=== PATIENT | female | born 1995 | race Hispanic/Latino ===

== ENCOUNTER 2017-02-11 17:44 | Day surgery (SDC) | payer OTHER ==
[2017-02-11 18:18] VITALS: BMI 26.3
[2017-02-11 20:33] LABS: Bilirubin Negative (Negative); Blood, Urine Trace (Negative); Glucose, Urine (Dipstick) Negative (Negative); Ketone, Urine Negative (Negative); Nitrite Negative (Negative); Protein, Urine (Dipstick) Negative (Neg-Trace); Urobilinogen 0.2 mg/dL (0.2-1.0)
[2017-02-11 20:35] LABS: Bacteria/HPF None Seen HPF (None Seen); Hyaline Casts/LPF 0-3 HYALINE CAST LPF (0-3 Hyaline); Squamous Epithelial 0-3 HPF (0-3); WBC/HPF 0-3 HPF (0-3)
--- NOTE | 2017-02-12 02:14 | PDOC.LDHP ---
Labor and Delivery H&P HPI: 21 yo at 27.6 weeks gestation by 1TUS presents with vaginal spotting since Saturday. Pt states that she noticed some spotting after using the bathroom on Saturday. She also stated that on Saturday after taking a shower, she noticed more spotting. Denied clots. Denies contractions. Denies fluid loss or abnormal vaginal discharge. No hx of sexual intercourse over the past week. Endorses suprapubic pain. PMHx: denies PSHx: denies OBhx: first , no current problems, ultrasound wnl per patient. Allergie: nkda social: denies alcohol, drug use, smoking Dating criteria: first trimester ultrasound Grav: 1 Para: 0 OB History Details: see above Current complications: none Abnormal US findings: No Past Medical History: none Current medications: pre-seferino vitamins Previous surgical history: none Social history: none - Physical Exam Vital signs reviewed and normal: yes General: NAD Heart: RRR Lungs: CTAB Abdomen: gravid (suprapubic tenderness) Extremeties: no edema FHT: category 2, variable decelerations, variability present - Assessment 21 yo @ 27.6 weeks presents with vaginal bleeding with concern for infection etiology, without evidence of vaginal or cervical bleeding on speculum exam. - Plan Plan: other (UA and culture, VP3, speculum exam -->pt was positive for bacterial vaginosis on VP3; sent in prescription for flagyl 500mg BID for 7 days.) <Emi Quinn - Last Filed: 02/12/17 02:06> <Morales Gant - Last Filed: 02/12/17 19:06> Allergies/Adverse Reactions: Allergies Allergy/AdvReac Type Severity Reaction Status Date / Time No Known Allergies Allergy Unverified 02/11/17 18:11 Attending Addendum - Attending Addendum I personally evaluated the patient and discussed the management with Dr. Irving Khan. I agree with the History, Examination, Assessment and Plan documented above with any addition or exceptions noted below. <Morales Gant - Last Filed: 02/12/17 19:06>
== END 2017-02-11 21:50 | disposition home or self-care (01) ==
LOC: L&D/OP 17:44
PROVIDERS: ATTEND Family Medicine
DX: O26.852 Spotting complicating pregnancy, second trimester (principal); O23.592 Infection of other part of genital tract in pregnancy, second trimester; N76.0 Acute vaginitis; Z3A.27 27 weeks gestation of pregnancy; Z79.899 Other long term (current) drug therapy
CPT/HCPCS: 76815; 81001; 87086; 87480; 87510; 87660; A4353

== ENCOUNTER 2017-05-07 09:45 | Inpatient (IN) | payer OTHER ==
[2017-05-07 10:15] VITALS: BMI 28.5
[2017-05-07] MEDS ORDERED: HYDROcodone/Acetaminophen 5/325 mg Tablet PO PRN ×2 (11:01)
[2017-05-07] MEDS ORDERED: Lidocaine 1% (PF) 30 ML VIAL SC PRN (11:01)
[2017-05-07] MEDS ORDERED: Carboprost 250 MCG/ML AMP IM PRN (11:01)
[2017-05-07] MEDS ORDERED: Misoprostol 200 MCG TAB PR PRN (11:01)
[2017-05-07] MEDS ORDERED: Methylergonovine 0.2 MG/ML VIAL IM PRN (11:01)
[2017-05-07] MEDS ORDERED: Docusate 100 MG CAP PO PRN (11:01)
[2017-05-07] MEDS ORDERED: Promethazine HCl 25 MG/ML VIAL IM PRN (11:01)
[2017-05-07] MEDS ORDERED: Ondansetron HCl/PF 4 MG/2 ML Vial IVP PRN (11:01)
[2017-05-07] MEDS ORDERED: Ibuprofen 800 MG TAB PO PRN (11:01)
--- NOTE | 2017-05-07 11:10 | PDOC.LDHP ---
Labor and Delivery H&P Chief complaint: contractions HPI: Patient is a 21yo at 40w0d by LMP/13w u/s presents with ctx, onset this morning, 3min apart and painful. Reports mild amount of vaginal bleeding, good movement, and no LOF. Patient declines any pain management for labor. Current gestational age (weeks): 40 Due date: 05/07/17 Dating criteria: last menstrual period, first trimester ultrasound Grav: 1 Para: 0 OB History Details: Hx of anemia of pregancy: Hgb on 01/22/17 of 9.7 Current complications: other (anemia of ) Past Medical History: None Current medications: pre- vitamins Previous surgical history: none Social history: none - Physical Exam Vital signs reviewed and normal: yes General: breathing through contractions Heart: RRR Lungs: CTAB Abdomen: NTTP Extremeties: trace edema FHT: category 1 [place] contractions every: baseline 125, +accels, moderate variability, -decels - Vaginal Exam cm dilated: 4 Effacement: 75% Station: -1 - OB Labs Blood type: O RH: positive Antibody Screen: negative HIV: negative RPR: negative HEPSAg: negative 1 hour GCT: positive (141, A1c- 5.3) GBS: negative Urine drug screen: not done Rubella: immune - Assessment L&D Assessment: term patient in labor 21yo at 40w1d by LMP/13w u/s presents with ctx 2-3min apart and SVE of 4/80%/-1 in latent labor. 1. Labor Management - Admit to L&D, labs ordered - baby is vertex confirmed by spot u/s with left posterior fundal placenta and OA position - Membranes intact, per nurse, bulging bag. Will allow patient to proceed with natural labor course and if at any point stops making change for >4 hours will consider AROM. At this time not indicated - FHT good with cat 1 strip 2. Hx of Anemia of - Hgb in 01/2017 of 9.7, repeat CBC today - patient has not been on Fe 3. Maternal FHx of MR - patient declined screening 4. Possible TB Exposure - clinic notes express quantGold to be done with 2T labs, but not apparent in our records - will call clinic to obtain record of labs possibly - Plan Plan: admit to L&D <Patrica Davalos - Last Filed: 05/07/17 11:08> <Aishwarya Coombs - Last Filed: 05/07/17 14:03> Allergies/Adverse Reactions: Allergies Allergy/AdvReac Type Severity Reaction Status Date / Time No Known Allergies Allergy Unverified 02/11/17 18:11 Attending Addendum - Attending Addendum Date/Time: 05/07/17 11:45 I personally evaluated the patient and discussed the management with Dr. Davalos. I agree with the History, Examination, Assessment and Plan documented above. <Aishwarya Coombs - Last Filed: 05/07/17 14:03>
[2017-05-07] MEDS ORDERED: FLU VACC QS2017-18 36 mo. & older 0.5 ML SYRINGE IM ONE (12:00)
[2017-05-07 13:19] LABS: Mean Corpuscular Hemoglobin 24.3 pg (25.0-35.0); Mean Corpuscular Volume 75.8 fl (77.0-87.0); Mean Platelet Volume 9.1 fL (7.4-10.4); Platelet Count 252 thou/uL (130-400); RBC Distribution Width 16.4 % (11.5-14.5); Red Blood Cell (RBC) Count 4.11 mill/uL (4.00-5.20); White Blood Cell (WBC) Count 15.7 thou/uL (4.8-10.8)
[2017-05-07] MEDS: Lactated Ringer's 1,000 ML IV SCH (13:50)
[2017-05-07 13:59] LABS: HBSAg Index 0.19 S/CO (0-0.99); Hep B Surf Ag Non-Reactive S/CO (NonReactive)
[2017-05-07 14:01] LABS: Syphilis Antibody Nonreactive (Nonreactive); Syphilis Antibody Index 0.03 S/CO (<1.00 Non-Reactive)
[2017-05-07] MEDS: LR / Pitocin 40 units/1000 ml 1,000 ML IV PRN ×2 (15:45→17:36)
[2017-05-07 16:00] LABS: Actual Bicarbonate (HCO3a) 21.2 mEq/L (22-26); Analyzer IN Cardio OR; Base Excess (BEa) -8.8 mEq/L (0 (+/-) 2.5)
--- NOTE | 2017-05-07 16:25 | PDOC.OPDEL ---
OB Operative/Delivery Note Delivery Dr/Surgeon: Franco Robert MD; Attending: Aishwarya Coombs MD Pre-Delivery Diagnosis: active labor, other (mild anemia of ) Procedure/Post Delivery Dx: spontaneous vaginal delivery Anesthesia: other (local given after delivery for repair) - Additional Findings/Plan Placenta delivered: spontaneous (via James mechanism) Repaired Obstetrical Laceration: 1st degree Estimated blood loss: 300 mL Compilations/Other Findings: Delivery Note: This is 21 yo F @ 40wks who delivered a viable F infant at 1539 on 05/07/17. Following an antepartum course notable for several episodes of bradycardia into the 70's-80's after maternal pushing, prompting brief consideration of converting to a vacuum delivery, a grossly normal female was delivered spontaneously over an intact perineum in the straight occipitoanterior position. Anterior Shoulder and then remainder of the body delivered. No nuchal cord. The head was held down and mouth and nares were quickly bulb suctioned. Cord clamped, cut, and both cord segment and cord blood were collected. Placenta was delivered intact with a 3 vessel cord noted. Fundal massage was performed and the fundus was firm. The cervix and vagina were inspected and found to have a first degree perineal laceration, repaired with 2-0 vicryl in the usual fashion with good approximation and hemostasis after a local anesthetic was injected at site. went to nursery in good condition for routine care. Apgars were 6/9 at 1 & 5 minutes, respectively. Patient tolerated delivery well. Post delivery plan: routine recovery <Franco Robert - Last Filed: 05/07/17 16:22> Attending Addendum - Attending Addendum Date/Time: 05/07/17 1407 I was present for the entire delivery with Dr. Robert. <Aishwarya Coombs - Last Filed: 05/07/17 17:37>
[2017-05-07] MEDS ORDERED: Bisacodyl 10 MG SUPP PR PRN (20:21)
[2017-05-07] MEDS ORDERED: Lanolin Ointment 7 GM TUBE TOP PRN (20:21)
[2017-05-07] MEDS: Ferrous Sulfate 325 MG TAB PO SCH (20:49)
[2017-05-07] MEDS: Docusate Calcium (SURFAK) 240 MG CAP PO SCH (21:40)
[2017-05-08] MEDS: Ibuprofen 800 MG TAB PO SCH ×4 (00:05→20:52)
[2017-05-08] MEDS: Lactated Ringer's 1,000 ML IV SCH (05:59)
--- NOTE | 2017-05-08 06:40 | PDOC.PP ---
Post Progress Note Post Day #: 1 Subjective: Patient is sitting up nursing baby this morning. She reports some low back pain , but otherwise feels well. She is with some difficulty. PO intake tolerated: yes Flatus: yes Ambulation: yes Vital Signs (12 hours) Temp Pulse Resp BP 05/08/17 04:42 98.4 F 83 16 05/08/17 04:00 98.4 F 83 16 102/61 05/08/17 00:00 98.7 F 83 16 111/62 05/07/17 20:30 98.0 F 83 16 114/56 L Weight Weight 82.554 kg - Physical Examination General: NAD Cardiovascular: no m/r/g, RRR Respiratory: clear to auscultation bilaterally Abdominal: + bowel sounds, lochia, no distention Fundus firm & at: 2-3cm below umbilicus Extremities: negative homans (B) Neurological: no gross focal deficits Psychiatric: A&Ox3, normal affect Result Diagrams: 05/08/17 06:32 Additional Labs: Post Labs Blood Type O POSITIVE 05/07/17 13:03 Hep Bs Antigen Non-Reactive S/CO (NonReactive) 05/07/17 13:03 (1) Status: Acute Comment: 21 yo delivered at 40.0 weeks a TAGA F at 1539 on 05/07/2017 via with no complications. PP day #1. Patient doing well. Encourage ambulation- low back pain likely exacerbated with staying in bed. Consult operations specialist to help with . Likely d/c home tomorrow. (2) Anemia affecting Code(s): O99.019 - ANEMIA COMPLICATING , UNSPECIFIED TRIMESTER Status : Acute Comment: Initial Hg 10.0, today 8.3- appropriate drop, delivery with EBL 300. Continue Fe supplement and evaluate for sx.
[2017-05-08 07:20] LABS: Hemoglobin 8.4 g/dL (12.0-16.0); Mean Corpuscular HGB CONC 31.6 g/dL (32.0-36.0); Mean Corpuscular Hemoglobin 24.8 pg (25.0-35.0); Mean Corpuscular Volume 78.5 fl (77.0-87.0); Mean Platelet Volume 9.4 fL (7.4-10.4); Platelet Count 240 thou/uL (130-400); RBC Distribution Width 16.4 % (11.5-14.5); Red Blood Cell (RBC) Count 3.38 mill/uL (4.00-5.20); White Blood Cell (WBC) Count 16.9 thou/uL (4.8-10.8)
[2017-05-08] MEDS: Docusate Calcium (SURFAK) 240 MG CAP PO SCH ×2 (09:02→20:52)
[2017-05-08] MEDS: Ferrous Sulfate 325 MG TAB PO SCH ×3 (09:02→18:48)
[2017-05-09] MEDS: Acetaminophen 325 MG TAB PO PRN ×2 (01:12→09:27)
[2017-05-09] MEDS: Ibuprofen 800 MG TAB PO SCH (05:45)
--- NOTE | 2017-05-09 06:21 | PDOC.PP ---
Post Progress Note Post Day #: 2 Subjective: Patient is doing well this morning. Reports pain well controlled with Ibuprofen , lochia wnl, and able to eat/drink normally and move about. No acute events overnight. PO intake tolerated: yes Flatus: yes Ambulation: yes Vital Signs (12 hours) Temp Pulse Resp BP 05/09/17 04:00 98.5 F 90 17 107/55 L 05/08/17 20:10 98.9 F 107 H 18 95/54 L 05/08/17 20:00 98.9 F 107 H 16 Weight Weight 82.554 kg - Physical Examination General: NAD Cardiovascular: no m/r/g, RRR Respiratory: clear to auscultation bilaterally, non-labored breathing Abdominal: + bowel sounds, lochia, no distention, appropriately TTP Fundus firm & at: -2 Extremities: negative homans (B) Skin: no rash Neurological: no gross focal deficits Psychiatric: A&Ox3, normal affect Result Diagrams: 05/08/17 06:32 Additional Labs: Post Labs Blood Type O POSITIVE 05/07/17 13:03 Hep Bs Antigen Non-Reactive S/CO (NonReactive) 05/07/17 13:03 (1) Status: Acute Comment: 21 yo delivered at 40.0 weeks a TAGA F at 1539 on 05/07/2017 via with no complications. PP day #2. Patient doing well. improving. Likely d/c home today. (2) Anemia affecting Code(s): O99.019 - ANEMIA COMPLICATING , UNSPECIFIED TRIMESTER Status : Acute Comment: Initial Hg 10.0, today 8.3- appropriate drop, delivery with EBL 300. Continue Fe supplement and evaluate for sx. <Patrica Davalos - Last Filed: 05/09/17 12:59> Weight Weight 182 lb Result Diagrams: 05/08/17 06:32 Additional Labs: Post Labs Blood Type O POSITIVE 05/07/17 13:03 Hep Bs Antigen Non-Reactive S/CO (NonReactive) 05/07/17 13:03 <Jaison Bergman - Last Filed: 05/11/17 08:21> Attending Addendum - Attending Addendum Date/Time: 05/11/17 0821 I personally evaluated the patient and discussed the management with Dr. Davalos I agree with the History, Examination, Assessment and Plan documented above with any addition or exceptions noted below. <Jaison Bergman - Last Filed: 05/11/17 08:21>
[2017-05-09] MEDS: Ferrous Sulfate 325 MG TAB PO SCH (09:26)
[2017-05-09] MEDS: Docusate Calcium (SURFAK) 240 MG CAP PO SCH (09:27)
[2017-05-09 11:19] VITALS: BP 110/53; TEMP 99
== END 2017-05-09 12:35 | disposition home or self-care (01) | DRG 775 ==
LOC: L&D/OP 09:45 → L&D 12:31 → 3SW 20:40
PROVIDERS: ADMIT Obstetrics & Gynecology; ATTEND Obstetrics & Gynecology
PROC: 10E0XZZ Delivery of Products of Conception, External Approach (ICD-10-PCS; principal; 2017-05-07)
PROC: 0HQ9XZZ Repair Perineum Skin, External Approach (ICD-10-PCS; 2017-05-07)
DX: O99.02 Anemia complicating childbirth (principal); O70.0 First degree perineal laceration during delivery; O76 Abnormality in fetal heart rate and rhythm complicating labor and delivery; Z3A.40 40 weeks gestation of pregnancy; Z37.0 Single live birth; D64.9 Anemia, unspecified
CPT/HCPCS: 36415; 51701; 76815; 82805; 85027; 86780; 87340; 99285; J2001

== ENCOUNTER 2022-10-30 11:17 | Emergency (ER) | payer BC, SELFPAY ==
[2022-10-30 11:42] LABS: #Eosinphils 0.1 thou/uL (0.0-0.7); #Monocytes 0.8 thou/uL (0.11-0.59); #Neutrophils 5.8 thou/uL (1.40-6.50); %Basophils 0.2 % (0.0-1.0); %Eosinophils 1.3 % (0.0-10.0); %Lymphocytes 26.1 % (21.0-51.0); %Monocytes 8.3 % (0.0-10.0); %Neutrophils 63.9 % (42.0-75.0); Hematocrit 38.8 % (36.0-47.0); Hemoglobin 12.6 g/dL (12.0-16.0); Mean Corpuscular HGB CONC 32.5 g/dL (32.0-36.0); Mean Corpuscular Hemoglobin 27.8 pg (27.0-31.0); Mean Corpuscular Volume 85.5 fl (78.0-98.0); Mean Platelet Volume 10.8 fL (7.4-10.4); Platelet Count 298 10x3/uL (130-400); RBC Distribution Width 16.5 % (11.5-14.5); Red Blood Cell (RBC) Count 4.54 mill/uL (4.20-5.40); White Blood Cell (WBC) Count 9.1 10x3/uL (4.8-10.8)
[2022-10-30 13:33] LABS: Albumin 4.2 g/dL (3.5-5.0)
[2022-10-30 13:34] LABS: Chloride 103 mmol/L (98-107); Potassium 3.6 mmol/L (3.5-5.1)
[2022-10-30 13:35] LABS: Calcium 9.8 mg/dL (7.8-10.44); Glucose 68 mg/dL (70-105)
[2022-10-30 13:36] LABS: Globulin 3.2 g/dL (2.4-3.5); Protein, Total 7.4 g/dL (6.0-8.3)
[2022-10-30 13:37] LABS: Bilirubin, Total 0.4 mg/dL (0.2-1.2); Carbon Dioxide 18 mmol/L (22-29)
[2022-10-30 13:38] LABS: Alkaline Phosphatase 45 U/L (40-110)
[2022-10-30 13:39] LABS: Calc. Creatinine Clearance 0 mL/min (70-130); Estimated GFR 127
[2022-10-30 13:40] LABS: BUN (Urea Nitrogen) 9 mg/dL (7.0-18.7)
[2022-10-30 13:41] LABS: ALT (SGPT) 8 U/L (8-55); AST (SGOT) 13 U/L (5-34)
[2022-10-30 13:44] LABS: Sodium 132 mmol/L (136-145)
[2022-10-30 13:45] LABS: Anion Gap 15 mmol/L (10-20)
== END 2022-10-30 13:34 | disposition home or self-care (01) ==
LOC: ERS 11:17
DX: O20.0 Threatened abortion (principal); Z3A.08 8 weeks gestation of pregnancy
CPT/HCPCS: 36415; 76856; 80053; 84702; 85025; 86850; 86900; 86901